=== PATIENT | female | born 1975 | race American Indian/Alaskan Native ===

== ENCOUNTER 2018-03-28 13:41 | Emergency (ER) | payer SELFPAY ==
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
[2018-03-28 18:05] VITALS: BP 124/89
== END 2018-03-28 18:05 | disposition home or self-care (01) ==
LOC: ED 13:41
DX: M79.1 Myalgia (principal); M54.2 Cervicalgia; I10 Essential (primary) hypertension; F17.200 Nicotine dependence, unspecified, uncomplicated; F12.10 Cannabis abuse, uncomplicated; V47.5XXA Car driver injured in collision with fixed or stationary object in traffic accident, initial encounter; Y93.89 Activity, other specified; Y92.89 Other specified places as the place of occurrence of the external cause; Y99.8 Other external cause status
CPT/HCPCS: 99282